=== PATIENT | male | born 1985 | race Two or more races ===

== ENCOUNTER 2016-06-05 15:08 | Emergency (ER) | payer SELFPAY ==
[~2016-06-05] VITALS: Ht 170.2 cm; Wt 111.1 kg
[~2016-06-05 15:08] MED LIST: CLEOCIN150 MG PO; IBUPROFEN200 M1 PO; TYLENOL325 MG PO; TYLENOL500 MG PO
[2016-10-03] MEDS ORDERED: FLOMAX0.4 MG PO (06:38)
[2016-12-15] MEDS ORDERED: XANAX0.5 MG PO (22:05)
== END 2016-06-05 17:25 | disposition short-term general hospital (02) ==
LOC: ER 15:08
DX: R10.11 Right upper quadrant pain (principal); Z88.0 Allergy status to penicillin; Z90.49 Acquired absence of other specified parts of digestive tract
CPT/HCPCS: J1885